=== PATIENT | female | born 1975 | race Caucasian/White ===

== ENCOUNTER → 2016-10-15 | Outpatient (CLI) | payer OTHER ==
--- NOTE | 2016-10-15 13:42 | KCIC ---
PROCEDURE Complete pelvic ultrasound. HISTORY Irregular bleeding. History of fibroid. TECHNIQUE Real-time ultrasound imaging of the pelvis using transabdominal and transvaginal windows performed. COMPARISON None. FINDINGS The uterus measures 13.3 x 6.6 x 9.6 cm. There is a right fundal fibroid that measures 5.6 x 5.9 x 6.1 cm. The endometrial stripe is normal measuring 8 millimeters. A 5 millimeter echogenicity is seen in the left uterus near the fundus that may be a calcification. Small nabothian cysts are seen. The right and left ovaries are not identified. No pelvic free fluid is seen. No evidence of adnexal mass. IMPRESSION 1. Endometrial stripe is normal. 2. Moderate size fundal fibroid. 3. Small nabothian cysts. 4. The right and left ovaries are not identified. Electronically signed by: Nelson Stanley MD (October 15, 2016 13:41:23)
--- NOTE | 2016-10-15 14:15 | KCIC ---
PROCEDURE Bilateral digital screening mammogram. HISTORY 41-year-old female presents for screening mammography. TECHNIQUE Full field digital craniocaudal and mediolateral oblique views of both breasts were obtained. Computer-aided detection is applied. COMPARISON None. This is a baseline mammogram. FINDINGS Breast parenchymal composition: Level A - Mostly fat. There is a small circumscribed nodule within the upper outer quadrant of the right breast, the location and configuration of which favors a benign axillary tail lymph node. There is no suspicious calcification or architectural distortion within either breast. IMPRESSION BI-RADS Category 0: Needs additional imaging. Further evaluation with a right breast sonogram to assess a small circumscribed nodule likely due to a lymph node within the axillary tail is recommended, given the absence of a prior study to confirm stability. The patient will be contacted to return for additional imaging. This study was interpreted with the benefit of Computerized Aided Detection (CAD). Mammography is not 100% sensitive in detecting breast cancer. Therefore, a self breast exam and a clinical breast exam are very important. A negative mammogram does not negate a clinically suspicious finding and should not result in a delay in biopsying a clinically suspicious abnormality. Electronically signed by: Marietta Mcgarry (October 15, 2016 14:13:32)
== END | disposition home or self-care (01) ==
LOC: KCIC US 12:45
PROVIDERS: ATTEND Obstetrics & Gynecology
DX: Z12.31 Encounter for screening mammogram for malignant neoplasm of breast (principal); N93.9 Abnormal uterine and vaginal bleeding, unspecified; Z85.42 Personal history of malignant neoplasm of other parts of uterus; N88.8 Other specified noninflammatory disorders of cervix uteri
CPT/HCPCS: 76830; 76856; G0202; 77067

== ENCOUNTER → 2016-10-22 | Outpatient (CLI) | payer OTHER ==
--- NOTE | 2016-10-22 12:01 | RAD ---
Indication: Abnormal mammogram. Correlation is made with prior mammogram from 10/15/2016. Sonographic interrogation of the right axilla was performed. There is a lymph node with fatty hilum measuring approximately 2.7 cm. No other masses or lymph nodes are seen. Impression: Right axillary lymph node. No other significant abnormality is detected. The patient may return to routine annual screening. BI-RADS Category 2, benign findings.
== END | disposition home or self-care (01) ==
LOC: KCIC US 08:01
PROVIDERS: ATTEND Obstetrics & Gynecology
DX: R92.8 Other abnormal and inconclusive findings on diagnostic imaging of breast (principal)
CPT/HCPCS: 76641